=== PATIENT | male | born 1995 | race Caucasian/White ===

== ENCOUNTER 2017-03-03 20:06 | Emergency (ER) | payer OTHER | END 2017-03-03 20:43 | disposition home or self-care (01) | LOC: FER 20:06 | DX: S70.362A Insect bite (nonvenomous), left thigh, initial encounter (principal); W57.XXXA Bitten or stung by nonvenomous insect and other nonvenomous arthropods, initial encounter | CPT/HCPCS: 99282 ==

== ENCOUNTER 2021-04-18 09:59 | Emergency (ER) | payer OTHER ==
[~2021-04-18 09:59] MED LIST: LODINE400 MG PO; NAPROXEN500 MG PO; ROBAXIN500 MG PO
[2021-04-18] MEDS ORDERED: NAPROXEN500 MG PO (11:24)
[2021-04-18] MEDS ORDERED: ULTRAM50 MG PO (11:24)
== END 2021-04-18 11:44 | disposition home or self-care (01) ==
LOC: FER 09:59
DX: S46.001A Unspecified injury of muscle(s) and tendon(s) of the rotator cuff of right shoulder, initial encounter (principal); V89.9XXA Person injured in unspecified vehicle accident, initial encounter
CPT/HCPCS: 73030

== ENCOUNTER 2021-12-19 13:25 | Emergency (ER) | payer OTHER ==
[~2021-12-19 13:25] MED LIST changes: +ULTRAM50 MG PO
[2021-12-19] MEDS ORDERED: AMOX TR-K CLV1 EAC4 PO (15:56)
[2021-12-19] MEDS ORDERED: PERIDEX15 ML SSP (15:56)
== END 2021-12-19 16:01 | disposition home or self-care (01) ==
LOC: FER 13:25
DX: S01.512A Laceration without foreign body of oral cavity, initial encounter (principal); S13.4XXA Sprain of ligaments of cervical spine, initial encounter; V29.9XXA Motorcycle rider (driver) (passenger) injured in unspecified traffic accident, initial encounter
CPT/HCPCS: 72125